=== PATIENT | female | born 1985 | race Hispanic/Latino ===

== ENCOUNTER 2024-09-14 08:43 | Emergency (ER) | payer SELFPAY ==
[~2024-09-14] VITALS: Ht 154.9 cm; Wt 97.5 kg
[2024-09-14 09:09] LABS: BASOPHILS # (AUTO) 0.03 K/uL (0.00-0.20); BASOPHILS % (AUTO) 0.6 % (0.0-5.0); EOSINOPHILS # (AUTO) 0.18 K/uL (0.00-0.70); EOSINOPHILS % (AUTO) 3.4 % (0.0-8.0); HEMATOCRIT 43.1 % (36-48); IMMATURE GRANULOCYTE ABSOLUTE 0.02 K/uL (0-1); LYMPHOCYTES # (AUTO) 1.5 K/uL (1.0-4.8); LYMPHOCYTES % (AUTO) 28.3 % (21.0-51.0); MEAN CORPUSCULAR HEMOGLOBIN 29.8 pg (27.0-33.0); MEAN CORPUSCULAR HGB CONC 33.6 g/dL (32.0-36.0); MEAN CORPUSCULAR VOLUME 88.5 fL (79-99); MONOCYTES # (AUTO) 0.4 K/uL (0.1-1.0); MONOCYTES % (AUTO) 7.9 % (3.0-13.0); NEUTROPHILS # (AUTO) 3.2 K/uL (1.8-7.7); NEUTROPHILS % (AUTO) 59.4 % (40.0-77.0); PLATELET COUNT (AUTO) 241 K/uL (130-400); RED BLOOD CELL COUNT(AUTO) 4.87 MIL/uL (4.00-5.50); RED CELL DISTRIBUTION WIDTH 13.2 % (11.0-15.5); WHITE BLOOD COUNT (AUTO) 5.3 K/uL (4.8-10.8)
[2024-09-14 09:20] LABS: CREATININE 0.8 mg/dL (0.5-1.0); POTASSIUM 3.7 mmol/L (3.5-5.1)
[2024-09-14 09:25] LABS: ALBUMIN 3.8 g/dL (3.5-5.0); BILIRUBIN,TOTAL 0.9 mg/dL (0.2-1.0); TOTAL PROTEIN, SERUM 7.8 g/dL (6.0-8.3)
[2024-09-14 09:50] LABS: APPEARANCE,URINE CLOUDY (CLEAR); BILIRUBIN,URINE NEGATIVE (NEGATIVE); COLOR,URINE YELLOW (YELLOW); GLUCOSE, URINE (UA) NEGATIVE (NEGATIVE); KETONES,URINE 10 mg/dL (NEGATIVE); LEUKOCYTE ESTERASE ,URINE NEGATIVE Leu/uL (NEGATIVE); NITRATE,URINE NEGATIVE (NEGATIVE); OCCULT BLOOD,URINE LARGE (NEGATIVE); PH,URINE 5.5 (5.0-8.0); PROTEIN,URINE 10 mg/dL (NEGATIVE); UROBILINOGEN,URINE 0.2 mg/dL (0.2-1.0)
[2024-09-14] MEDS: acetaMINOPHEN 500 MG TABLET PO ONE (09:54)
[2024-09-14] MEDS: ketOROlac 15MG/ML VIAL (15MG/ML) IV ONE (09:54)
[2024-09-14 10:09] LABS: ADD UA MICROSCOPIC YES
[2024-09-14 10:14] LABS: BACTERIA,URINE FEW /HPF (None Seen); MUCUS,URINE RARE LPF (None Seen); RBC,URINE TNTC /HPF (0-1); SQUAMOUS EPITHELIAL CELL,UR FEW /HPF (0-2); UNCLASSIFIED CRYSTAL 1 /HPF (None Seen)
[2024-09-14 10:53] LABS: AMPHET/METH SCREEN,URINE NEGATIVE (NEGATIVE); BARBITURATE SCREEN, URINE NEGATIVE (NEGATIVE); BENZODIAZEPINES SCREEN,URINE NEGATIVE (NEGATIVE); CANNABINOID SCREEN,URINE NEGATIVE (NEGATIVE); COCAINE SCREEN,URINE NEGATIVE (NEGATIVE); OPIATE SCREEN,URINE NEGATIVE (NEGATIVE); PHENCYCLIDINE SCREEN,URINE NEGATIVE (NEGATIVE)
[2024-09-14] MEDS ORDERED: IOHEXOL 350 MG/ML 100ML INFUS..BTL IV ONE (10:57)
[2024-09-14] MEDS ORDERED: KETO10 PO (12:11)
[2024-09-14] MEDS ORDERED: CEPH500B PO (12:11)
[2024-09-14] MEDS ORDERED: TAMS-1 PO (12:11)
[2024-09-14] MEDS: 0.9%NACL 1000ML 1,000 ML IV ONE (12:13)
[2024-09-14 12:36] VITALS: BP 144/89; PULSE 64; RESP 20; TEMP 98.4; O2SAT 97
== END 2024-09-14 12:08 | disposition home or self-care (01) ==
LOC: EDH 08:43
DX: N20.0 Calculus of kidney (principal); Z90.49 Acquired absence of other specified parts of digestive tract; W01.0XXA Fall on same level from slipping, tripping and stumbling without subsequent striking against object, initial encounter; Y93.89 Activity, other specified; Y92.89 Other specified places as the place of occurrence of the external cause; Y99.8 Other external cause status
CPT/HCPCS: 99285; 74177; 96374; 82550; 84484; 80053; 80305; 84703; 83690; 85025; 36415; 93005; 81001; J7030; J1885; Q9967

== ENCOUNTER 2025-02-14 09:01 | Emergency (ER) | payer BC, SELFPAY ==
[~2025-02-14] VITALS: Ht 154.9 cm; Wt 95.3 kg
[~2025-02-14 09:01] MED LIST: CEPH500B PO; KETO10 PO; TAMS-1 PO
--- NOTE | 2025-02-14 09:14 | ERN ---
General Chief Complaint: FOOT INJURY/PAIN Stated Complaint: LT FOOT PAIN, RT THUMB PAIN Time Seen by MD: 09:04 History of Present Illness Initial Comments 39-year-old female who presents for two complaints after the same fall. Patient had a mechanical fall three days ago. She rolled her left ankle and put her right hand down and a FOOSH type injury. She has pain to the left lateral foot and pain to the right thumb. There is some bruising to the thumb. No obvious trauma to the foot. She was ambulatory otherwise an antalgic gait. Pain is over the lateral side of the foot. Allergies: Coded Allergies: No Known Drug Allergies (Unverified Allergy, Unknown, 09/14/24) Home Meds Active Scripts Tamsulosin HCl (Flomax) 0.4 Mg Cap.er.24h, 1 CAP PO DAILY for 7 Days, #7 CAP 0 Refills Prov:JIMI LUCIANO MD 09/14/24 Cephalexin Monohydrate (Keflex) 500 Mg Cap, 1 CAP PO BID for 10 Days, #20 CAP 0 Refills Prov:JIMI LUCIANO MD 09/14/24 Ketorolac Tromethamine (Toradol) 10 Mg Tab, 1 TAB PO Q6HPRN PRN for pain for 5 Days, #20 TAB 0 Refills Prov:JIMI LUCIANO MD 09/14/24 Past Medical History Past Medical History: No Pertinent History Past Surgical History: Cholecystectomy, Other Surgical History Other: LAPOROSCOPY Female( History) LMP: Jan 29, 2025 ROS Dictation CONSTITUTIONAL: No chills, no fever, no weakness, no diaphoresis, no malaise. HEAD/FACE: No signs of trauma. EENT: No eye pain, no blurred vision, no tearing, no double vision, no ear pain, no ear discharge, no nose pain, no nasal congestion, no throat pain, no throat swelling, no mouth pain. RESPIRATORY: No cough, no orthopnea, no SOB, no stridor, no wheezing. CARDIOVASCULAR: No chest pain, no edema, no palpitations, no syncope. GASTROINTESTINAL/ABDOMINAL: No abdominal pain, no constipation, no diarrhea, no nausea, no vomiting. GENITOURINARY: No abnormal discharge, no dysuria, no frequent urination, no hematuria. No complaints of pain in the genitals. MUSCULOSKELETAL: Right thumb, left foot pain INTEGUMENTARY: No change in color, no change in hair/nails, no dryness, no lesion, no lumps, no rash. NEUROLOGICAL/PSYCH: No anxiety, not depressed, no emotional problem, no headache, no numbness, no pre-existing deficit, no history of seizures, no tremors, no weakness. HEMATOLOGIC/LYMPHATIC: Not anemic, no history of blood clots, no apparent bleeding, no bruising, glands not swollen. All Systems Negative, Except as Noted. Physical Exam Physical Exam Dictation VITAL SIGNS: Reviewed. GENERAL APPEARANCE: Alert, oriented x3, no acute distress, obese. HEAD AND FACE: Non-traumatic. EYES: PERRL, pink conjunctivas, eyelid no trauma, anterior chamber clear. EARS: Pinnas intact and no signs of trauma or erythema. Ear canals clear and no discharge. TMs no erythema. NOSE: No discharge, no bleeding. OROPHARYNX: Mouth normal, teeth no caries, tongue pink. Pharynx clear, no erythema. Tonsils no exudates, no abscesses noted. Mucous membrane moist. NECK: Supple, non-tender, no thyromegaly, no masses, no JVD, no bruits. BREAST: Deferred. CHEST: No tenderness, no crepitus, no paradoxical movement, no retractions. LUNGS: Clear, well-ventilated, symmetric, no rales, no wheezing, no rhonchi, no stridor, good breath sounds bilaterally. HEART: Regular rate, regular rhythm, no murmur, no gallops. VASCULAR: No peripheral edema. ABDOMEN: Soft, positive bowel sounds, nondistended, no guarding, nontender, no rebound, no masses no hepatomegaly, no splenomegaly, no Ceja's sign, no hernias. RECTAL: Deferred. GENITAL: Deferred. NEUROLOGICAL: Normal speech, gross motor function intact, gross sensory function intact. MUSCULOSKELETAL: Neck nontender, full range of motion, back nontender, full range of motion. EXTREMITIES: Nontender, full range of motion. SKIN: Color pink, dry, no turgor, no rash, no lacerations, no abrasions, no contusions. LYMPHATICS: Deferred. MDM CC: Thumb and foot pain Historian: Patient No comorbidities Differential includes fracture versus soft tissue injury Vitals are stable Neurovascularly intact Foot x-ray, ankle x-ray, thumb x-ray per my independent interpretation are unremarkable. We will DC with supportive care. ED Course Orders Procedure Category Date Status Time Hand 3+Vws Rt RAD 02/14/25 Resulted 09:11 Foot Comp 3+Vws Lt RAD 02/14/25 Resulted 09:11 Ankle Comp 3vws Lt RAD 02/14/25 Resulted 10:01 Vital Signs Date Time Temp Pulse Resp B/P (MAP) Pulse Ox O2 Delivery O2 Flow Rate FiO2 02/14/25 10:27 98.2 65 16 115/73 99 Room Air* 0 21 02/14/25 09:08 98.2 67 16 114/73 100 Room Air* 0 21 02/14/25 09:03 98.2 68 16 114/73 99 Room Air 0 DX & DISP Disposition: Discharge Departure Impression: Primary Impression: Strain of right thumb Additional Impression: Sprain of left foot Condition: Stable Additional Instructions: The x-rays do not show any bony fractures. Your symptoms are consistent with a sprain/strain. Rest your foot and thumb. Apply ice frequently. Alternate tylenol & ibuprofen for pain. Follow up as needed. Referrals: SELF,REFERRAL (PCP) CARLY JOHNSON DO Feb 14, 2025 09:14
[2025-02-14 10:27] VITALS: BP 115/73; PULSE 65; RESP 16; TEMP 98.2; O2SAT 99
--- NOTE | 2025-02-14 10:27 | HMCIMG ---
HAND 3+VWS RT HISTORY: Injury COMPARISON: None TECHNIQUE: 3 images of right hand were obtained. FINDINGS: There is no acute displaced fracture or dislocation. IMPRESSION: 1. Findings as described above.
--- NOTE | 2025-02-14 10:36 | HMCIMG ---
ANKLE COMP 3VWS LT HISTORY: Injury COMPARISON: None TECHNIQUE: 3 images of left ankle were obtained. FINDINGS: There is no acute displaced fracture or dislocation. There is a small calcaneal spur. Degenerative changes are seen. IMPRESSION: 1. Findings as described above.
--- NOTE | 2025-02-14 10:36 | HMCIMG ---
FOOT COMP 3+VWS LT HISTORY: Injury COMPARISON: None TECHNIQUE: 3 images of left foot were obtained. FINDINGS: There is no acute displaced fracture or dislocation. There is a calcaneal spur. Degenerative changes are seen. IMPRESSION: 1. Findings as described above.
== END 2025-02-14 10:38 | disposition home or self-care (01) ==
LOC: EDH 09:01
DX: S66.211A Strain of extensor muscle, fascia and tendon of right thumb at wrist and hand level, initial encounter (principal); S93.602A Unspecified sprain of left foot, initial encounter; Z90.49 Acquired absence of other specified parts of digestive tract; W18.39XA Other fall on same level, initial encounter; Y93.89 Activity, other specified; Y92.89 Other specified places as the place of occurrence of the external cause; Y99.8 Other external cause status
CPT/HCPCS: 73130; 73610; 73630; 99283